=== PATIENT | female | born 1990 | race Caucasian/White ===

== ENCOUNTER 2020-08-11 20:01 | Emergency (ER) | payer MEDICAID ==
[~2020-08-11] VITALS: Ht 165.1 cm; Wt 72.7 kg
[2020-08-11 20:16] VITALS: BP 143/85
[2020-08-11] MEDS ORDERED: PRED20TA PO (21:39)
[2020-08-11] MEDS ORDERED: BENZ-16 PO (21:39)
[2020-08-11] MEDS ORDERED: ALBU6.7H9 INH (21:39)
== END 2020-08-11 22:23 | disposition home or self-care (01) ==
LOC: ER 20:02
DX: J06.9 Acute upper respiratory infection, unspecified (principal); Z20.822 Contact with and (suspected) exposure to COVID-19; F17.200 Nicotine dependence, unspecified, uncomplicated; Z72.89 Other problems related to lifestyle; Z79.899 Other long term (current) drug therapy
CPT/HCPCS: 36415; 87635; 99283